=== PATIENT | male | born 1960 | race Caucasian/White ===

== ENCOUNTER 2022-11-12 07:33 | Day surgery (SDC) | payer OTHER, MEDICAID, SELFPAY ==
[2022-11-07 08:13] VITALS: BMI 40.3
[2022-11-12] VITALS (10 sets, daily range): BP systolic 94–171; BP diastolic 46–99; PULSE 82–95; RESP 12–20; TEMP 36.1–36.4; O2SAT 92–98; BMI 40.3
[2022-11-12] MEDS: LACTATED RINGERS 1,000 ML 42 ML IV ×2 (08:06→09:27)
--- NOTE | 2022-11-12 08:08 | PM.PREOP ---
Pre-operative Note COVID-19 COVID-19 status: Not tested Interval Note History & Physical reviewed/Exam performed by Physician: Yes Changes to H&P: No ASA Class (for procedural sedation): III
[2022-11-12] MEDS: CEFAZOLIN 2 GM/100 ML PREMIX 100 ML IV (08:30)
--- NOTE | 2022-11-12 08:50 | SUR.OPER ---
Supine on padded OR bed, head on pillow, arms padded and tucked at sides, legs uncrossed, safety belt at thigh, tape over blanket over lower legs .
[2022-11-12] MEDS: LIDOCAINE 1% 20 ML, EPINEPHrine 0.2 MG INJ (08:56)
--- NOTE | 2022-11-12 11:40 | P.OP_ITS ---
Operative Date/Time/Diagnoses Date of procedure: 11/12/22 Time of procedure: 11:40 Pre-op diagnosis: Recurrent right inguinal hernia Post-op diagnosis: same Procedure & Clinicians Procedure: Laparoscopic recurrent right inguinal hernia repair with mesh Same procedure as scheduled: Yes Surgeon: John Chatman Physical Therapy Coordinator: Zack Melo Anesthesia Type: General Operative Notes Procedure in detail: The patient was given preoperative antibiotics. The patient was brought to the operating room, placed on the table in the supine position with the arms tucked and general anesthesia was induced. The abdomen was prepped and draped in the usual fashion. A time-out was performed. A 2 cm curvilinear supraumbilical incision was created and dissection was carried down to the anterior sheath. The fascia was scored transversely with cautery. A Peon clamp was used to trevino the peritoneum. The She port was placed and the abdomen was insufflated to 15 mmHg. The camera was inserted, there was no evidence of any injury from the entry. There was an indirect right inguinal hernia. 5 mm ports were placed under direct vision in the mid left and mid right abdomen. The patient was positioned in steep Trendelenburg. We created right peritoneal flap. The peritoneum was dissected out of the hernia along with a remarkable amount of fatty tissue. A small direct defect was also noted and reduced. The cord structures were seen traversing through the internal ring. A a large right Bard mesh was brought in and placed over the defect with the medial edge against Vladimir's ligament. We then closed the peritoneal flap with a running 3-0 barbed suture. We took one last look around the abdomen and saw no other abnormalities. The suture was removed and accounted for. The 5 mm ports were removed under direct vision. The abdomen was desufflated. The She port was removed. Additional local was injected into the fascia and the infraumbilical fascial incision was closed with 2 interrupted 0 Vicryl sutures. The skin incisions were closed with 4 Monocryl, Steri-Strips and Band-Aids. EBL: 100 mL Post-operative Condition: stable Disposition: PACU
[2022-11-12] MEDS: ONDANSETRON 4 MG/2 ML INJ IV (12:14)
[2022-11-12] MEDS: OXYCODONE/ACETAMINOPHEN 5/325 TABLET 1 TAB PO (12:22)
== END 2022-11-12 12:57 | disposition home or self-care (01) ==
PROVIDERS: Referring Provider Surgery; Visit Provider Surgery
PROC: 0YQ54ZZ Repair Right Inguinal Region, Percutaneous Endoscopic Approach (ICD-10-PCS; CPT 49651; principal; 2022-11-12 09:15)
DX: K40.91 Unilateral inguinal hernia, without obstruction or gangrene, recurrent (principal)
CPT/HCPCS: 49651; J0171; J0330; J0690; J1100; J2405; J2704; J3010; J3490

== ENCOUNTER → 2023-11-07 11:42 | Outpatient (CLI) | payer OTHER, MEDICAID, SELFPAY ==
--- NOTE | 2023-11-07 11:46 | DI.CT.S_ITS ---
PROCEDURE: CT PELVIS W CON INDICATIONS: Right groin pain TECHNIQUE: After the administration of intravenous contrast, 5 mm thick sections acquired from the iliac crests to the symphysis. 5 mm coronal and sagittal reformats were acquired. For radiation dose reduction, the following was used: automated exposure control, adjustment of mA and/or kV according to patient size. COMPARISON: None. FINDINGS: Image quality: Diagnostic. PELVIS: Peritoneum and Bowel: Bowel loops demonstrate normal wall thickness and caliber. No free fluid or air. Pelvic Organs: No pelvic mass. Prostatomegaly. Bladder: Normal wall thickness, accounting for underdistension. No perivesicular fat stranding. Pelvic Nodes: No enlarged lymph nodes. Miscellaneous: Large right inguinal hernia containing portion the bladder wall. Bones: No aggressive osseous abnormality. Severe right hip osteoarthritis with joint space narrowing and subchondral cystic change with osteophytosis. IMPRESSION: Large right inguinal hernia containing a portion of the bladder wall. Severe right hip osteoarthritis. Dictated by: Andres Mireles M.D. on 11/07/2023 at 14:39 Approved by: Andres Mireles M.D. on 11/07/2023 at 14:40
[2023-11-07 12:28] LABS: Estimated Glomerular Filt Rate > 60 mL/min (>60)
== END ==
PROVIDERS: Radiology Diagnostic Radiology; Referring Provider Surgery; Visit Provider Surgery
DX: K40.90 Unilateral inguinal hernia, without obstruction or gangrene, not specified as recurrent (principal); M16.11 Unilateral primary osteoarthritis, right hip; R10.31 Right lower quadrant pain
CPT/HCPCS: 36415; 72193; 82565; Q9967

== ENCOUNTER 2024-02-03 06:27 | Day surgery (SDC) | payer MEDICARE, MEDICAID, SELFPAY ==
[2024-01-30 09:30] VITALS: BMI 43.2
[2024-02-03] VITALS (8 sets, daily range): BP systolic 147–170; BP diastolic 89–100; PULSE 72–83; RESP 9–16; TEMP 36.1–36.3; O2SAT 92–97; BMI 39.6
[2024-02-03] MEDS: LACTATED RINGERS 1,000 ML 42 ML IV (07:21)
[2024-02-03] MEDS: FAMOTIDINE 20 MG/2 ML VIAL IV (07:21)
[2024-02-03] MEDS: ACETAMINOPHEN 325 MG TABLET 975 MG PO (07:21)
--- NOTE | 2024-02-03 07:43 | P.HP_ITS ---
History of Present Illness History of Present Illness Date Patient Seen: 02/03/24 Time Patient Seen: 07:43 Chief complaint: Open recurrent R inguinal hernia repair Narrative: Danny is a 63 year old man with a twice recurrent right inguinal hernia. See office notes for details. [facility] Medical History Anesthesia complication History of COVID-19 (2018) Hepatitis A HTN (hypertension) Surgical History (Updated 01/30/24 @ 09:32 by Mounika Henderson RN) Hx of right inguinal hernia repair (10/2022) H/O shoulder surgery History of ankle surgery (2020) Hx of hernia repair (2005) Hx of hernia repair (2020) Social History household members: family Smoking Status: Never smoker alcohol intake: current Meds Home Medications and Allergies Home Medications Medication Instructions Recorded Confirmed Type No Known Home Medications 02/03/24 02/03/24 History Allergies Allergy/AdvReac Type Severity Reaction Status Date / Time hydrocodone AdvReac Unknown daymares Verified 02/03/24 07:09 morphine AdvReac daymares Verified 02/03/24 07:09 oxycodone AdvReac daymares Verified 02/03/24 07:09 Exam Vital Signs (past 8 hours): - 02/03/24 07:13 Temperature 97.0 F L Pulse Rate 72 Respiratory Rate 16 Blood Pressure 170/100 H Pulse Oximetry 96 Oxygen Delivery Method Room Air Oxygen Delivery Method Room Air Narrative Exam Narrative: Large right inguinal hernia Assessment & Plan Assessment and plan (1) Recurrent right inguinal hernia: Status: Acute Plan The OR for open recurrent right inguinal hernia repair with mesh. Time-Based Coding :: [TOTAL MINUTES] spent with patient and on the chart (including review of chart, obtaining history, exam, reviewing outside data, placing orders, documenting exam and treatment plan, and counseling patient) on [DATE].
[2024-02-03] MEDS: CEFAZOLIN 2 GM/100 ML PREMIX 100 ML IV (07:55)
--- NOTE | 2024-02-03 08:02 | SUR.OPER ---
Supine on padded OR bed, head on pillow, arms secured on padded arm boards at <90 degrees abduction, legs uncrossed, safety belt at thigh, tape over blanket over lower legs.
[2024-02-03] MEDS: BUPIVACAINE 0.5% W/ EPI (PF) 10 ML VIAL 30 ML INJ (08:06)
--- NOTE | 2024-02-03 09:58 | PM.OP.1 ---
Operative Date/Time/Diagnoses Date of procedure: 02/03/24 Time of procedure: 09:58 Pre-op diagnosis: Recurrent right inguinal hernia Post-op diagnosis: same Procedure & Clinicians Procedure: Open recurrent right inguinal hernia repair with mesh Same procedure as scheduled: Yes Surgeon: John [employer] Receptionist: Zack Melo Anesthesia Type: General Operative Notes Procedure in detail: Preoperative antibiotic was administered. The patient was brought to the operating room and placed on the table in supine position general anesthesia was induced. The right groin was prepped and draped in the normal fashion and a time-out was performed. Roughly 10 mL of local anesthetic were injected into the skin and subcutaneous adipose tissue over the right groin. A 12 cm incision was made over the right inguinal canal. No recognizable external oblique fascia was seen. We dissected through the subcutaneous adipose tissue inferiorly until we encountered hernia contents. We bluntly dissected the hernia off the cord structures and pulled it up out of the scrotum and encircled the cord with a Angeles drain. The sac was opened and there appeared to be omentum and other visceral fat in the hernia. We dissected the hernia off the cord structures. We dissected down to the external ring. We then opened the external oblique which was mostly fibrosed scar tissue. Eventually we could completely reduce the hernia contents into the abdomen. It became clear that the hernia was a large direct defect. We then placed a polypropylene mesh against the floor of the inguinal canal. The mesh was secured with multiple interrupted 3-0 Prolene sutures to the pubic tubercle and shelving edge of the inguinal ligament as well as to the conjoint tendon medially. We overlapped the tails to recreate an internal ring and secured the medial tail to the inguinal ligament with additional sutures. We injected some more local into the fatty tissue in the inguinal canal and cord. Finally, we removed the Angeles drain and closed the external oblique fascia with a running 3-0 Vicryl suture. Skin was closed with interrupted 3-0 Vicryl dermal sutures and a running 4 Monocryl subcuticular stitch. EBL 15 mL The patient was awakened and brought to recovery room. Post-operative Condition: stable Disposition: PACU
--- NOTE | 2024-02-03 10:37 | SUR.PHASEII ---
IS provided. Verbal instructions given to patient. Able to reach 3000mls.
== END 2024-02-03 11:17 | disposition home or self-care (01) ==
PROVIDERS: Referring Provider Surgery; Visit Provider Surgery
PROC: (CPT 49520; principal; 2024-02-03 07:45)
DX: K40.91 Unilateral inguinal hernia, without obstruction or gangrene, recurrent (principal)
CPT/HCPCS: 49520; J0690; J1100; J1170; J2250; J2405; J2704; J3010; J3490